=== PATIENT | male | born 1990 | race Caucasian/White ===

== ENCOUNTER 2022-10-31 13:58 | Inpatient (IN) | payer OTHER ==
[2022-10-31] MEDS ORDERED: SODIUM CHLORIDE 0.9% 1,000 ML IV ONE (14:14)
[2022-10-31] MEDS ORDERED: LORazepam 2 MG/ML INJ IV STA ×8 (14:14→18:40)
--- NOTE | 2022-10-31 14:17 | ED ---
General Adult HPI - General Chief complaint: Altered Mental Status Stated complaint: Altered Mental Status Time Seen by Provider: 10/31/22 14:02 Source: EMS Mode of arrival: EMS Limitations: altered mental status - History of Present Illness Initial comments: Patient brought to the ED by ambulance from [place] for evaluation of altered mental status. Per EMS, the staff reported to them that the patient has developed altered mental status today and reportedly defecated on himself. Patient is reportedly at [place] for opiate and benzodiazepine dependence treatment. On arrival to the ED, the patient is alert with eyes open, but not verbally responsive at all. Patient is moving all 4 extremities spontaneously. Patient has not answering any of my questions at this time. No other history is available at this time. - Related Data Home Medications Medication Instructions Recorded Confirmed Acetaminophen Tab [Tylenol] 650 mg PO Q4H PRN 10/31/22 10/31/22 Calcium/Magnesium/Zinc/Yasmeen D 1 tab PO DAILY PRN 10/31/22 Chlorpheniramine Maleate 4 mg PO Q4H PRN 10/31/22 10/31/22 [Chlor-Trimeton] Hyoscyamine Sulfate [Levsin] 0.125 mg PO QID PRN 10/31/22 10/31/22 Loperamide HCl [Imodium A-D] 4 mg PO BID PRN 10/31/22 10/31/22 Magnesium Hydroxide [Milk of 2,400 mg PO BID PRN 10/31/22 10/31/22 Magnesia] Mirtazapine [Remeron] 15 mg PO HS 10/31/22 10/31/22 Ondansetron [Zofran] 4 mg PO Q6H PRN 10/31/22 10/31/22 cloNIDine HCL [Catapres] 0.1 mg PO Q4H PRN 10/31/22 10/31/22 Allergies Allergy/AdvReac Type Severity Reaction Status Date / Time No Known Allergies Allergy Verified 10/31/22 14:34 Review of Systems ROS Statement: Those systems with pertinent positive or pertinent negative responses have been documented in the HPI. ROS Other: All systems not noted in ROS Statement are negative. Limitations: ROS unobtainable due to patients medical condition General Exam Limitations: altered mental status General appearance: alert Head exam: Present: atraumatic, normocephalic Eye exam: Present: normal appearance, PERRL ENT exam: Present: mucous membranes moist, TM's normal bilaterally Neck exam: Present: other (Trachea is in midline). Absent: meningismus Respiratory exam: Present: other (Course breath sounds bilaterally). Absent: respiratory distress, wheezes, stridor Cardiovascular Exam: Present: regular rate, normal rhythm, normal heart sounds, other (Normal radial pulses bilaterally) GI/Abdominal exam: Present: soft. Absent: distended, tenderness, guarding Extremities exam: Absent: pedal edema Neurological exam: Present: alert, other (Patient is moving all 4 extremities spontaneously; patient localizes to pain in all 4 extremities; pupils equal round and reactive to light) Skin exam: Present: warm, dry, intact, normal color Course Vital Signs 10/31/22 10/31/22 10/31/22 14:02 15:58 16:32 Temperature 99.3 F Pulse Rate 71 106 H 112 H Respiratory 18 22 Rate Blood Pressure 144/93 146/92 O2 Sat by Pulse 94 L 88 L Oximetry 10/31/22 16:36 Temperature Pulse Rate 101 H Respiratory Rate Blood Pressure O2 Sat by Pulse Oximetry - Reevaluation(s) Reevaluation #1: 10/31/22 17:04 Case, H&P, test results and ED management thus far were discussed with GEAR GENERATOR SET UP OPERATOR Joann Haddad. She accepts admission on behalf of herself and Dr. Boykin. She agrees with neurology and psychiatry consultations. She has no further recommendations at this time. 10/31/22 17:30 Patient's neurological exam is unchanged. She remains alert and breathing comfortably. EKG Findings - EKG Comments: EKG Findings:: ED physician interpretation (interpreted by me): Normal sinus rhythm, no ectopy, ventricular rate of 72 bpm, normal [place] and QRS intervals, normal QT interval, moderate voltage criteria for LVH, normal axis, no ST or T- wave abnormality Medical Decision Making - Medical Decision Making Was pt. sent in by a medical professional or institution (ESEQUIEL Lorenzo, GEAR GENERATOR SET UP OPERATOR, urgent care, hospital, or detention...) When possible be specific @ -No Did you speak to anyone other than the patient for history (EMS, parent, family, police, friend...)? What history was obtained from this source @ -History was obtained from EMS. Did you review nursing and triage notes (agree or disagree)? Why? @ -I reviewed and agree with nursing and triage notes Were old charts reviewed (outside hosp., previous admission, EMS record, old EKG, old radiological studies, urgent care reports/EKG's, detention records)? Report findings @ -No old charts were reviewed Differential Diagnosis (chest pain, altered mental status, abdominal pain women, abdominal pain men, vaginal bleeding, weakness, fever, dyspnea, syncope, headache, dizziness, GI bleed, back pain, seizure, CVA, palpatations, mental health, musculoskeletal)? @ -Differential Altered Mental Status: Hypoglycemia, DKA, hypercapnia, ETOH, overdose, HTN encephalopathy, infection, encephalitis, psychosis, intercranial hemorrhage, hepatic encephalopathy, me ningitis, CVA, medication reaction, psychiatric disease, this is not meant to be an all-inclusive liste EKG interpreted by me (3pts min.). @ -As above X-rays interpreted by me (1pt min.). @ -Patient's chest x-ray was reviewed myself and shows no acute abnormality. I agree with the radiologist's interpretation as above. CT interpreted by me (1pt min.). @ -Patient's noncontrast head CT was reviewed myself and shows no acute abnormality. I agree with the radiologist's interpretation as above. U/S interpreted by me (1pt. min.). @ -None done What testing was considered but not performed or refused? (CT, X-rays, U/S, labs)? Why? @ -None What meds were considered but not given or refused? Why? @ -None Did you discuss the management of the patient with other professionals (professionals i.e. , PA, GEAR GENERATOR SET UP OPERATOR, lab, RT, psych nurse, high school social studies tutor, conveyor tender concrete mixing plant, teacher, forward air controller/air officer, case picker)? Give summary @ -As above] Was smoking cessation discussed for >3mins.? @ -No Was critical care preformed (if so, how long)? @ -No Were there social determinants of health that impacted care today? How? (Homelessness, low income, unemployed, alcoholism, drug addiction, transportation, low edu. Level, literacy, decrease access to med. care, fci, rehab)? @ -Patient was sent to the ED from [place] for evaluation. Was there de-escalation of care discussed even if they declined (Discuss DNR or withdrawal of care, Hospice)? DNR status @ -No What co-morbidities impacted this encounter? (DM, HTN, Smoking, COPD, CAD, Cancer, CVA, ARF, Chemo, Hep., AIDS, mental health diagnosis, sleep apnea, morbid obesity)? @ -Drug abuse/dependence Was patient admitted / discharged? Hospital course, mention meds given and route, prescriptions, significant lab abnormalities, going to OR and other pertinent info. @ -Patient has been alert, but not responsive while in the ED. Patient is afebrile and has no nuchal rigidity on exam. Patient is not rigid and does not have myoclonus. Patient's head imaging is negative. Patient is mildly hypernatremic and appears somewhat dehydrated on laboratory evaluation, but has otherwise fairly unremarkable labs. I am uncertain of the exact etiology of the patient's altered mental status at this time, but I suspect it is likely toxicological versus psychiatric in etiology. Will admit the patient to the hospital for further evaluation and management. GEAR GENERATOR SET UP OPERATOR Anna Haddad has accepted hospital admission on behalf of herself and Dr. Boykin. Neurology and psychiatry consultation orders have been placed. Patient has been treated with IV Ativan and IV fluids in the ED. Undiagnosed new problem with uncertain prognosis? @ -No Drug Therapy requiring intensive monitoring for toxicity (Heparin, Nitro, Insulin, Cardizem)? @ -No Were any procedures done? @ -No Diagnosis/symptom? @ -Altered mental status Acute, or Chronic, or Acute on Chronic? @ -Acute Uncomplicated (without systemic symptoms) or Complicated (systemic symptoms)? @ -default Side effects of treatment? @ -No Exacerbation, Progression, or Severe Exacerbation? @ -No Poses a threat to life or bodily function? How? (Chest pain, USA, ID, pneumonia, PE, COPD, DKA, ARF, appy, cholecystitis, CVA, Diverticulitis, Homicidal, Suicidal, threat to staff... and all critical care pts) @ -No Diagnosis/symptom? @ -Hypernatremia Acute, or Chronic, or Acute on Chronic? @ -default Uncomplicated (without systemic symptoms) or Complicated (systemic symptoms)? @ -default Side effects of treatment? @ -none Exacerbation, Progression, or Severe Exacerbation] @ -no Poses a threat to life or bodily function? @ -no - Lab Data Result diagrams: 10/31/22 14:27 10/31/22 14:27 Lab Results 10/31/22 10/31/22 10/31/22 Range/Units 14:27 14:27 14:27 WBC 11.1 H (3.8-10.6) k/uL RBC 6.18 H (4.30-5.90) m/uL Hgb 16.3 (13.0-17.5) gm/dL Hct 49.0 (39.0-53.0) % MCV 79.3 L (80.0-100.0) fL MCH 26.3 (25.0-35.0) pg MCHC 33.2 (31.0-37.0) g/dL RDW 13.6 (11.5-15.5) % Plt Count 362 (150-450) k/uL MPV 7.5 Neutrophils % 82 % Lymphocytes % 11 % Monocytes % 5 % Eosinophils % 0 % Basophils % 0 % Neutrophils # 9.2 H (1.3-7.7) k/uL Lymphocytes # 1.3 (1.0-4.8) k/uL Monocytes # 0.5 (0-1.0) k/uL Eosinophils # 0.0 (0-0.7) k/uL Basophils # 0.0 (0-0.2) k/uL PT 12.7 H (9.0-12.0) sec INR 1.2 H (<1.2) APTT 23.0 (22.0-30.0) sec Sodium 152 H (137-145) mmol/L Potassium 3.9 (3.5-5.1) mmol/L Chloride 108 H (98-107) mmol/L Carbon Dioxide 25 (22-30) mmol/L Anion Gap 19 mmol/L BUN 38 H (9-20) mg/dL Creatinine 1.15 (0.66-1.25) mg/dL Est GFR (CKD-EPI)AfAm >90 (>60 ml/min/1.73 sqM) Est GFR (CKD-EPI)NonAf 83 (>60 ml/min/1.73 sqM) Glucose 137 H (74-99) mg/dL POC Glucose (mg/dL) (70-110) mg/dL POC Glu Rubbing Bed Operator ID Calcium 10.6 H (8.4-10.2) mg/dL Total Bilirubin 1.0 (0.2-1.3) mg/dL AST 29 (17-59) U/L ALT 27 (4-49) U/L Alkaline Phosphatase 87 (38-126) U/L Ammonia (<30) umol/L Creatine Kinase 222 H (55-170) U/L Troponin I (0.000-0.034) ng/mL Total Protein 10.3 H (6.3-8.2) g/dL Albumin 5.5 H (3.5-5.0) g/dL Serum Alcohol <10 mg/dL 10/31/22 10/31/22 10/31/22 Range/Units 14:27 14:27 14:36 WBC (3.8-10.6) k/uL RBC (4.30-5.90) m/uL Hgb (13.0-17.5) gm/dL Hct (39.0-53.0) % MCV (80.0-100.0) fL MCH (25.0-35.0) pg MCHC (31.0-37.0) g/dL RDW (11.5-15.5) % Plt Count (150-450) k/uL MPV Neutrophils % % Lymphocytes % % Monocytes % % Eosinophils % % Basophils % % Neutrophils # (1.3-7.7) k/uL Lymphocytes # (1.0-4.8) k/uL Monocytes # (0-1.0) k/uL Eosinophils # (0-0.7) k/uL Basophils # (0-0.2) k/uL PT (9.0-12.0) sec INR (<1.2) APTT (22.0-30.0) sec Sodium (137-145) mmol/L Potassium (3.5-5.1) mmol/L Chloride (98-107) mmol/L Carbon Dioxide (22-30) mmol/L Anion Gap mmol/L BUN (9-20) mg/dL Creatinine (0.66-1.25) mg/dL Est GFR (CKD-EPI)AfAm (>60 ml/min/1.73 sqM) Est GFR (CKD-EPI)NonAf (>60 ml/min/1.73 sqM) Glucose (74-99) mg/dL POC Glucose (mg/dL) 119 H (70-110) mg/dL POC Glu Rubbing Bed Operator ID Ricardo Gastelum Calcium (8.4-10.2) mg/dL Total Bilirubin (0.2-1.3) mg/dL AST (17-59) U/L ALT (4-49) U/L Alkaline Phosphatase (38-126) U/L Ammonia <9 (<30) umol/L Creatine Kinase (55-170) U/L Troponin I <0.012 (0.000-0.034) ng/mL Total Protein (6.3-8.2) g/dL Albumin (3.5-5.0) g/dL Serum Alcohol mg/dL - Radiology Data Chest x-ray: No acute process. Noncontrast head CT: No acute intracranial hemorrhage, mass effect, or midline shift is seen. Disposition Clinical Impression: Altered mental status, Hypernatremia Disposition: ADMITTED IP TO THIS HOSP Condition: Stable Is patient prescribed a controlled substance at d/c from ED?: No Referrals: None,Stated [Primary Care Provider] - 1-2 days Time of Disposition: 17:28
[2022-10-31 14:38] LABS: Glucose,Whole Blood 119 mg/dL (70-110)
[2022-10-31 14:46] LABS: Basophils % (A) 0 %; Eosinophils % (A) 0 %; HGB 16.3 gm/dL (13.0-17.5); Lymphocytes # (A) 1.3 k/uL (1.0-4.8); Lymphocytes % (A) 11 %; MCH 26.3 pg (25.0-35.0); MCHC 33.2 g/dL (31.0-37.0); MCV 79.3 fL (80.0-100.0); Mean Platelet Volume 7.5; Monocytes # (A) 0.5 k/uL (0-1.0); Monocytes % (A) 5 %; Neutrophils # (A) 9.2 k/uL (1.3-7.7); Neutrophils % (A) 82 %; Platelet Count 362 k/uL (150-450); RBC 6.18 m/uL (4.30-5.90); RDW 13.6 % (11.5-15.5); WBC 11.1 k/uL (3.8-10.6)
[2022-10-31 14:55] LABS: ALT 27 U/L (4-49); AST 29 U/L (17-59); African American GFR (CKD) >90 (>60 ml/min/1.73 sqM); Albumin 5.5 g/dL (3.5-5.0); Alcohol <10 mg/dL; Alkaline Phosphatase 87 U/L (38-126); Anion Gap 19 mmol/L; Blood Urea Nitrogen 38 mg/dL (9-20); Calcium 10.6 mg/dL (8.4-10.2); Carbon Dioxide 25 mmol/L (22-30); Chloride 108 mmol/L (98-107); Creatine Kinase 222 U/L (55-170); Glucose 137 mg/dL (74-99); Non-African American GFR(CKD) 83 (>60 ml/min/1.73 sqM); Potassium 3.9 mmol/L (3.5-5.1); Sodium 152 mmol/L (137-145); Total Protein 10.3 g/dL (6.3-8.2)
[2022-10-31 14:57] LABS: INR 1.2 (<1.2); Prothrombin Time 12.7 sec (9.0-12.0)
--- NOTE | 2022-10-31 15:12 | XR ---
EXAMINATION TYPE: XR chest 1V portable DATE OF EXAM: 10/31/2022 COMPARISON: NONE HISTORY: Altered mental status and weakness. TECHNIQUE: Single AP portable frontal upright view of the chest is obtained. FINDINGS: There is no focal air space opacity, pleural effusion, or pneumothorax seen. The cardiac silhouette size is within normal limits. The osseous structures are intact. IMPRESSION: No acute process.
--- NOTE | 2022-10-31 15:35 | CT ---
EXAMINATION TYPE: CT brain wo con DATE OF EXAM: 10/31/2022 COMPARISON: None. HISTORY: ams CT DLP: 1143.4 mGycm. Automated Exposure Control for Dose Reduction was Utilized. TECHNIQUE: CT scan of the head is performed without contrast. FINDINGS: There is no acute intracranial hemorrhage, mass effect, or midline shift identified. The ventricles and sulci are within normal limits in size. Chairez-white matter differentiation is maintain ed. Nasal septum is deviated to right of midline. The globes are intact and the visualized sinuses ar e clear. IMPRESSION: No acute intracranial hemorrhage, mass effect, or midline shift is seen.
[2022-10-31] MEDS ORDERED: IPRATROPIUM-ALBUTEROL 3 ML NEB INHALATION STA ×2 (16:14→18:03)
[2022-10-31] MEDS ORDERED: SODIUM CHLORIDE 0.9% 500 ML 500 ML IV ONE (16:21)
[2022-10-31] MEDS ORDERED: NALOXONE 0.4 MG/ML 1 ML VIAL IV PRN (17:28)
[2022-10-31] MEDS ORDERED: ZIPRASIDONE 20 MG VIAL IM STA (18:46)
[2022-10-31] MEDS: DEXMEDETOMIDINE/0.9% NACL(PMX) 400 MCG in EMPTY BAG 1 BAG IV SCH (19:18)
[2022-10-31] MEDS: SODIUM CHLORIDE 0.9% 1,000 ML IV SCH (19:25)
[2022-10-31 20:40] LABS: Glucose,Whole Blood 120 mg/dL (70-110)
[2022-10-31 22:23] LABS: Appearance,Urine Clear (Clear); Bilirubin,Urine Negative (Negative); Blood,Urine Negative (Negative); Color,Urine Yellow; Glucose,Urine (UA) Negative (Negative); Ketones,Urine Trace (Negative); Leukocyte Esterase,Urine Negative (Negative); Nitrite,Urine Negative (Negative); PH, Urine 5.5 (5.0-8.0); Protein,Urine Trace (Negative); Specific Gravity,Urine 1.019 (1.001-1.035); Urobilinogen,Urine <2.0 mg/dL (<2.0)
[2022-10-31 22:29] LABS: Amphetamine Screen,Urine Not Detected (NotDetected); Barbiturate Screen,Urine Not Detected (NotDetected); Benzodiazepines Screen,Urine Detected (NotDetected); Cocaine Screen,Urine Not Detected (NotDetected); Methadone Screen, Urine Not Detected (NotDetected); Opiate Screen,Urine Not Detected (NotDetected); Oxycodone Screen, Urine Not Detected (NotDetected); Phencyclidine Screen,Urine Not Detected (NotDetected); Tricyclic Antidepressant,Urine Not Detected (NotDetected); Urn Cannabinoid Scrn Not Detected (NotDetected)
[2022-11-01] MEDS ORDERED: HALOPERIDOL LACTATE 5 MG/ML 1 ML VIAL IVP PRN ×2 (01:37→08:56)
--- NOTE | 2022-11-01 01:39 | P.CNPUL ---
History of Present Illness Consult date: 11/01/22 Requesting physician: Kwadwo Oakley Reason for consult: other (ICU management) Chief complaint: Altered mental status, agitation History of present illness: I'm seeing this patient in new consultation today 11/01/2022 in the intensive care unit for suspected opiate and benzodiazepine withdrawal. Patient is a 32-year-old white male, with past medical history significant for polysubstance abuse, who was being seen at [facility]. Patient was reportedly there for over 1 week, when he started to develop worsening altered mental status and agitation, and was transferred to [facility]. While in the emergency department, the patient became more restless and agitated. He was treated with multiple doses of IV Ativan and IM Geodon without improvement. The patient was started on IV Precedex drip, and admitted to the intensive care unit. Patient is currently lying in bed, on room air, and is fairly comfortable. He is having some auditory and visual hallucinations. Precedex is infusing at 0.7 mcg/kg per hour. He is disoriented and a poor historian. There is a patient safety attendant at bedside. Brain CT without contrast on arrival was negative for any acute abnormalities. Chest x-ray showed no acute cardiopulmonary abnormalities. CBC on arrival showed a WBC count 11, hemoglobin 16, hematocrit 49, platelets 362. BMP shows a sodium of 152, potassium 3.9, chloride 108, serum CO2 25, BUN 38, creatinine 1.15, glucose 137. He clinically appears dehydrated, and has normal saline infusing at 130 ML's per hour. He also was given 2 L normal saline bolus in the emergency room. Estimated free water deficit was 3.5 L. Urine tox screen was only positive for benzos, which were given in the emergency room. Vital signs are stable at this time. Review of Systems ROS unobtainable: due to mental status Past Medical History Past Medical History: No Reported History History of Any Multi-Drug Resistant Organisms: None Reported Past Surgical History: No Surgical Hx Reported Past Anesthesia/Blood Transfusion Reactions: No Reported Reaction Past Psychological History: No Psychological Hx Reported Smoking Status: Former smoker Past Alcohol Use History: Unable to Obtain Past Drug Use History: Opiates Additional Drug Use History / Comment(s): Pt has history of fentanyl and benzo abuse Medications and Allergies Home Medications Medication Instructions Recorded Confirmed Type Acetaminophen Tab [Tylenol] 650 mg PO Q4H PRN 10/31/22 10/31/22 History Calcium/Magnesium/Zinc/Yasmeen D 1 tab PO DAILY PRN 10/31/22 History Chlorpheniramine Maleate 4 mg PO Q4H PRN 10/31/22 10/31/22 History [Chlor-Trimeton] Hyoscyamine Sulfate [Levsin] 0.125 mg PO QID PRN 10/31/22 10/31/22 History Loperamide HCl [Imodium A-D] 4 mg PO BID PRN 10/31/22 10/31/22 History Magnesium Hydroxide [Milk of 2,400 mg PO BID PRN 10/31/22 10/31/22 History Magnesia] Mirtazapine [Remeron] 15 mg PO HS 10/31/22 10/31/22 History Ondansetron [Zofran] 4 mg PO Q6H PRN 10/31/22 10/31/22 History cloNIDine HCL [Catapres] 0.1 mg PO Q4H PRN 10/31/22 10/31/22 History Allergies Allergy/AdvReac Type Severity Reaction Status Date / Time No Known Allergies Allergy Verified 10/31/22 14:34 Physical Exam Vitals: Vital Signs Temp Pulse Resp BP Pulse Ox 10/31/22 22:40 11 L 122/87 90 L 10/31/22 22:30 98 17 123/84 95 10/31/22 22:20 91 18 123/84 96 10/31/22 22:10 89 17 129/85 94 L 10/31/22 22:00 68 16 136/90 96 10/31/22 21:50 110 H 16 136/90 91 L 10/31/22 21:40 105 H 19 133/71 90 L 10/31/22 21:30 105 H 4 L 126/97 91 L 10/31/22 21:20 93 15 126/97 90 L 10/31/22 21:10 105 H 12 139/81 95 10/31/22 21:00 97.4 F L 96 16 134/99 94 L 10/31/22 20:50 118 H 15 134/99 98 10/31/22 20:42 110 H 14 131/89 10/31/22 20:30 119/71 10/31/22 20:20 110 H 20 119/71 95 10/31/22 19:44 125 H 22 134/91 99 10/31/22 18:21 126 H 10/31/22 18:08 105 H 10/31/22 16:36 101 H 10/31/22 16:32 112 H 10/31/22 15:58 106 H 22 146/92 88 L 10/31/22 14:02 99.3 F 71 18 144/93 94 L Intake and Output 10/31/22 10/31/22 11/01/22 14:59 22:59 06:59 Intake Total 421.072 Output Total 1300 Balance -878.928 Intake: IV 390 Sodium Chloride 0.9% 1, 390 000 ml @ 130 mls/hr IV . Q7H42M JOHAN Rx#:[id number] Intake, IV Titration 31.072 Amount Dexmedetomidine/0.9% NaCl 31.072 (Pmx) 400 mcg In Empty Bag 1 bag @ 0.2 MCG/KG/HR 4.536 mls/hr IV .Q22H3M JOHAN Rx#:[id number] Output: Urine 1300 Other: Weight 90.718 kg 91 kg GENERAL EXAM: Drowsy, 32-year-old white male, fairly comfortable. HEAD: Normocephalic and atraumatic EYES: Normal reaction of pupils, equal size. NOSE: Clear with pink turbinates. THROAT: No erythema or exudates. NECK: No masses, no JVD. CHEST: No chest wall deformity. LUNGS: Equal air entry with no crackles, wheeze, rhonchi or dullness. On room air. No conversational dyspnea or accessory muscle use.. CVS: S1 and S2 normal with no audible murmur, regular rhythm. No extra heart sounds ABDOMEN: No hepatosplenomegaly, active bowel sounds, no guarding or rigidity. SPINE: No scoliosis or deformity SKIN: No rashes CENTRAL NERVOUS SYSTEM: No focal deficits, tone is normal in all 4 extremities. He is disoriented 3. EXTREMITIES: There is no peripheral edema, clubbing, or cyanosis. Peripheral pulses are intact. Results - Laboratory Findings CBC and BMP: 10/31/22 14:27 10/31/22 14:27 PT/INR, D-dimer PT 12.7 sec (9.0-12.0) H 10/31/22 14:27 INR 1.2 (<1.2) H 10/31/22 14:27 Abnormal lab findings: Abnormal Labs 10/31/22 10/31/22 10/31/22 14:14 14:27 14:27 WBC 11.1 H RBC 6.18 H MCV 79.3 L Neutrophils # 9.2 H PT 12.7 H INR 1.2 H Sodium Chloride BUN Glucose POC Glucose (mg/dL) Calcium Creatine Kinase Total Protein Albumin Urine Protein Trace H Urine Ketones Trace H U Benzodiazepines Scrn Detected H 10/31/22 10/31/22 10/31/22 14:27 14:36 20:37 WBC RBC MCV Neutrophils # PT INR Sodium 152 H Chloride 108 H BUN 38 H Glucose 137 H POC Glucose (mg/dL) 119 H 120 H Calcium 10.6 H Creatine Kinase 222 H Total Protein 10.3 H Albumin 5.5 H Urine Protein Urine Ketones U Benzodiazepines Scrn - Diagnostic Findings Chest x-ray: image reviewed Assessment and Plan Assessment: Altered mental status related to suspected acute opiate and benzodiazepine wi thdrawals requiring Precedex infusion. Brain CT was negative for any acute abnormalities. Hypernatremia Dehydration Ex-smoker Plan: Patient's medications, labs, chest x-ray reviewed Continue Precedex infusion, with intention of weaning off the Precedex within the next 24 hours scow derrick operator at bedside Patient was fluid resuscitated Repeat labs in the morning Heparin for DVT prophylaxis Protonix for GI prophylaxis Vital signs are stable at this time Patient will be monitored in the intensive care unit at least overnight I have personally seen and examined the patient, performed the documentation and the assessment and plan as written. Number of minutes spent on the visit:20 Time with Patient: Greater than 30
[2022-11-01 04:05] LABS: Basophils % (A) 0 %; Eosinophils # (A) 0.1 k/uL (0-0.7); Eosinophils % (A) 1 %; HCT 42.4 % (39.0-53.0); HGB 13.7 gm/dL (13.0-17.5); Lymphocytes # (A) 1.1 k/uL (1.0-4.8); Lymphocytes % (A) 8 %; MCH 26.6 pg (25.0-35.0); MCHC 32.4 g/dL (31.0-37.0); MCV 82.2 fL (80.0-100.0); Mean Platelet Volume 7.4; Monocytes # (A) 0.7 k/uL (0-1.0); Monocytes % (A) 5 %; Neutrophils # (A) 12.3 k/uL (1.3-7.7); Neutrophils % (A) 86 %; Platelet Count 258 k/uL (150-450); RBC 5.16 m/uL (4.30-5.90); RDW 13.6 % (11.5-15.5); WBC 14.3 k/uL (3.8-10.6)
[2022-11-01 04:43] LABS: African American GFR (CKD) >90 (>60 ml/min/1.73 sqM); Anion Gap 9 mmol/L; Blood Urea Nitrogen 28 mg/dL (9-20); Calcium 9.2 mg/dL (8.4-10.2); Carbon Dioxide 24 mmol/L (22-30); Chloride 118 mmol/L (98-107); Glucose 134 mg/dL (74-99); Magnesium 2.5 mg/dL (1.6-2.3); Non-African American GFR(CKD) >90 (>60 ml/min/1.73 sqM); Potassium 3.4 mmol/L (3.5-5.1); Sodium 151 mmol/L (137-145)
[2022-11-01] MEDS: SODIUM CHLORIDE 0.45% 1,000 ML IV SCH ×2 (06:22→20:45)
[2022-11-01] MEDS: POTASSIUM CHLORIDE 10 MEQ in WATER FOR INJECTION 1 100ML.BAG IVPB SCH ×4 (06:22→12:02)
[2022-11-01] MEDS: SODIUM CHLORIDE 0.9% 1,000 ML IV SCH (06:23)
[2022-11-01] MEDS: DEXMEDETOMIDINE/0.9% NACL(PMX) 400 MCG in EMPTY BAG 1 BAG IV SCH (07:57)
[2022-11-01] MEDS: PANTOPRAZOLE 40 MG/10 ML VIAL IV SCH (08:39)
[2022-11-01] MEDS: HEPARIN SODIUM,PORCINE/PF 5,000 UNIT/0.5 ML SYRINGE SQ SCH ×2 (08:39→20:45)
[2022-11-01] MEDS ORDERED: QUEtiapine 25 MG TAB PO SCH (09:00)
[2022-11-01] MEDS: LORazepam 2 MG/ML INJ IV PRN ×5 (10:55→23:47)
--- NOTE | 2022-11-01 12:38 | P.CNNES ---
History of Present Illness Consult date: 11/01/22 Requesting physician: Kwadwo Oakley Reason for Consult: altered mental status History of Present Illness: This is a 32-year-old gentleman with history of polysubstance abuse who was sent from [place] because of the worsening altered mental status and agitation. He did acknowledge that he uses a opiates and benzos and that's why he was at [place]. He states that he drinks minimal alcohol. History is obtained from medical record that. He does lisa. At [facility] seems that the patient was a given multiple doses of IV Ativan and IM Geodon without improvement. Patient denies of any headache, focal weakness, numbness,, visual disturbance. Some of the workup during his hospital visit consisted of: Patient has been afebrile so far. Sodium is 152, glucose is 137 on presentation and most current ones is 134. CK levels 222. Most recent calcium is 9.2. Magnesium is 2.5. AST and ALT is within normal limits. Urine tox screen is positive for benzo. Serum alcohol was less than 10. Otherwise the rest of the urine drug screen is nondetected. Ammonia level is less than 9. CT of the head is reported as no acute intracranial hemorrhage, mass effect or midline shift is seen. I personally reviewed the CT and agree with report. Review of Systems Review of system is limited but the per positive and negative as per HPI. Past Medical History Past Medical History: No Reported History History of Any Multi-Drug Resistant Organisms: None Reported Past Surgical History: No Surgical Hx Reported Past Anesthesia/Blood Transfusion Reactions: No Reported Reaction Past Psychological History: No Psychological Hx Reported Smoking Status: Former smoker Past Alcohol Use History: Unable to Obtain Past Drug Use History: Opiates Additional Drug Use History / Comment(s): Pt has history of fentanyl and benzo abuse Medications and Allergies Home Medications Medication Instructions Recorded Confirmed Type Acetaminophen Tab [Tylenol] 650 mg PO Q4H PRN 10/31/22 10/31/22 History Calcium/Magnesium/Zinc/Yasmeen D 1 tab PO DAILY PRN 10/31/22 History Chlorpheniramine Maleate 4 mg PO Q4H PRN 10/31/22 10/31/22 History [Chlor-Trimeton] Hyoscyamine Sulfate [Levsin] 0.125 mg PO QID PRN 10/31/22 10/31/22 History Loperamide HCl [Imodium A-D] 4 mg PO BID PRN 10/31/22 10/31/22 History Magnesium Hydroxide [Milk of 2,400 mg PO BID PRN 10/31/22 10/31/22 History Magnesia] Mirtazapine [Remeron] 15 mg PO HS 10/31/22 10/31/22 History Ondansetron [Zofran] 4 mg PO Q6H PRN 10/31/22 10/31/22 History cloNIDine HCL [Catapres] 0.1 mg PO Q4H PRN 10/31/22 10/31/22 History Allergies Allergy/AdvReac Type Severity Reaction Status Date / Time No Known Allergies Allergy Verified 10/31/22 14:34 Physical Examination - Vital Signs Vital Signs: Vital Signs Temp Pulse Resp BP Pulse Ox 11/01/22 12:00 98.0 F 72 22 133/86 94 L 11/01/22 11:00 58 L 22 145/98 99 11/01/22 10:00 71 20 133/93 99 11/01/22 09:00 61 22 129/85 97 11/01/22 08:07 99 11/01/22 08:00 98.0 F 68 16 123/80 98 11/01/22 07:00 74 15 116/70 98 11/01/22 06:30 70 17 94/71 90 L 11/01/22 06:00 64 15 128/86 95 11/01/22 05:30 78 18 127/89 98 11/01/22 05:00 66 14 135/92 100 11/01/22 04:30 118 H 13 128/88 91 L 11/01/22 04:00 98.2 F 113 H 15 114/88 94 L 11/01/22 03:30 14 125/87 91 L 11/01/22 03:00 76 20 126/81 97 11/01/22 02:30 93 12 126/85 92 L 11/01/22 02:00 78 15 122/82 90 L 11/01/22 01:30 88 14 117/76 98 11/01/22 01:00 86 13 96 11/01/22 00:30 85 14 126/88 92 L 11/01/22 00:00 98.4 F 86 15 114/83 95 10/31/22 23:30 91 14 113/95 83 L 10/31/22 23:00 96 19 117/91 94 L 10/31/22 22:48 101 H 16 117/91 93 L 10/31/22 22:40 11 L 122/87 90 L 10/31/22 22:30 98 17 123/84 95 10/31/22 22:20 91 18 123/84 96 10/31/22 22:10 89 17 129/85 94 L 10/31/22 22:00 68 16 136/90 96 10/31/22 21:50 110 H 16 136/90 91 L 10/31/22 21:40 105 H 19 133/71 90 L 10/31/22 21:30 105 H 4 L 126/97 91 L 10/31/22 21:20 93 15 126/97 90 L 10/31/22 21:10 105 H 12 139/81 95 10/31/22 21:00 97.4 F L 96 16 134/99 94 L 10/31/22 20:50 118 H 15 134/99 98 10/31/22 20:42 110 H 14 131/89 10/31/22 20:30 119/71 10/31/22 20:20 110 H 20 119/71 95 10/31/22 19:44 125 H 22 134/91 99 10/31/22 18:21 126 H 10/31/22 18:08 105 H 10/31/22 16:36 101 H 10/31/22 16:32 112 H 10/31/22 15:58 106 H 22 146/92 88 L 10/31/22 14:02 99.3 F 71 18 144/93 94 L Intake and Output 10/31/22 11/01/22 11/01/22 22:59 06:59 14:59 Intake Total 180.256 7139.928 692.546 Output Total 1300 570 675 Balance -878.928 538.928 17.546 Intake: IV 390 1040 660 Sodium Chloride 0.45% 1, 400 000 ml @ 100 mls/hr IV . Q10H JOHAN Rx#:[id number] Sodium Chloride 0.9% 1, 390 1040 260 000 ml @ 130 mls/hr IV . Q7H42M JOHAN Rx#:[id number] Intake, IV Titration 31.072 68.928 32.546 Amount Dexmedetomidine/0.9% NaCl 31.072 68.928 32.546 (Pmx) 400 mcg In Empty Bag 1 bag @ 0.2 MCG/KG/HR 4.536 mls/hr IV .Q22H3M [facility] Rx#:[id number] Output: Urine 1300 570 675 Other: Voiding Method Indwelling Catheter Indwelling Catheter Weight 91 kg 102.5 kg GENERAL: The patient is lying in bed and is not in acute distress. CHEST: The heart rate is regular rate rhythm. No murmurs to auscultation. LUNG: Clear to auscultation bilaterally no wheezing noted throughout. Not labored breathing. ABDOMEN/GI: Bowel sounds present in all 4 quadrants. No tenderness to palpation throughout. NEUROLOGICAL: Is on IV Precedex 0.4mg/kg/hr. Higher mental function: The patient is drowsy but is awakeable to voice. Is oriented to self and time. He kept o stating he was at [facility]. He is able to name pen and watch. He was able to name current state and [facility]. Sometime he talks nonsensical. Patient is following simple commands. No neglect. Cranial nerves: The pupils are round, equal and reactive to light. Visual cabrera are full to confrontation throughout. Extraocular movement is intact no nystagmus is noted. Facial sensation is normal to touch throughout. The facial strength is normal throughout. Hearing is normal bilaterally to hand rub. Ton monserrat is midline and moved [id number] without any difficulty. No dysarthria is noted. Shoulder shrug is normal bilaterally. Motor: The strength is 5 over 5 throughout. Normal tone and bulk. Cerebellum: Normal finger to nose bilaterally. Sensation: Sensation is normal to touch throughout. Reflexes (right/left):2+ Plantars are downgoing bilaterally. Results - Laboratory Findings CBC and BMP: 11/01/22 03:40 11/01/22 03:40 Abnormal Lab Findings: Abnormal Labs 10/31/22 10/31/22 10/31/22 14:14 14:27 14:27 WBC 11.1 H RBC 6.18 H MCV 79.3 L Neutrophils # 9.2 H PT 12.7 H INR 1.2 H Sodium Potassium Chloride BUN Glucose POC Glucose (mg/dL) Calcium Magnesium Creatine Kinase Total Protein Albumin Urine Protein Trace H Urine Ketones Trace H U Benzodiazepines Scrn Detected H 10/31/22 10/31/22 10/31/22 14:27 14:36 20:37 WBC RBC MCV Neutrophils # PT INR Sodium 152 H Potassium Chloride 108 H BUN 38 H Glucose 137 H POC Glucose (mg/dL) 119 H 120 H Calcium 10.6 H Magnesium Creatine Kinase 222 H Total Protein 10.3 H Albumin 5.5 H Urine Protein Urine Ketones U Benzodiazepines Scrn 11/01/22 11/01/22 03:40 03:40 WBC 14.3 H RBC MCV Neutrophils # 12.3 H PT INR Sodium 151 H Potassium 3.4 L Chloride 118 H BUN 28 H Glucose 134 H POC Glucose (mg/dL) Calcium Magnesium 2.5 H Creatine Kinase Total Protein Albumin Urine Protein Urine Ketones U Benzodiazepines Scrn Assessment and Plan Assessment: Altered mental status seems due to multifactorial: Predominantly opiate and benzo dyes the pain withdrawal as well as metabolic encephalopathy. Also is on IV sedation (Precedex). CT head is negative. No focal deficit on examination. Hypernatremia Dehydration Vapes Plan: I ordered a routine EEG. Ordered vitamin B12, folate, TSH. Placed the patient on thiamine 100 mg daily. Patient is currently on the Seroquel 25 mg 1 tablet 3 times a day started by the ICU team Waist the patient on nicotine patch. The patient was counseled on tobacco cessation. Psychiatry is consulted. We'll defer the rest of the medical management to primary and ICU team Thank you for the consultation. Time with Patient: Greater than 30
[2022-11-01] MEDS: NICOTINE 21MG/24HR PATCH TRANSDERM SCH (13:23)
[2022-11-01] MEDS: THIAMINE 100 MG in SODIUM CHLORIDE 0.9% 50 ML IVPB SCH (13:23)
--- NOTE | 2022-11-01 13:43 | P.HPIM ---
History of Present Illness H&P Date: 11/01/22 History of present illness; Patient is a 32-year-old gentleman with past medical history significant for polysubstance abuse was sent to the ER from [place] where he was being treated for polysubstance abuse. Patient was reportedly there for over 1 week, when he started to develop worsening altered mental status and agitation, and was transferred to [facility]. Initial lab work done in the ER showed WBC 11.1, hemoglobin 6.3, sodium 152, potassium 3.9, chloride 108, BUN 38, creatinine 1.15 Urine tox screen is positive for benzo. Serum alcohol was less than 10. Otherwise the rest of the urine drug screen is nondetected. Ammonia level is less than 9. CT of the head is reported as no acute intracranial hemorrhage, mass effect or midline shift is seen. While in the emergency department, the patient became more restless and agitated. He was treated with multiple doses of IV Ativan and IM Geodon without improvement. The patient was started on IV Precedex drip, and admitted to the intensive care unit REVIEW OF SYSTEMS: Review of systems cannot be obtained as patient is lethargic, unable to obtain a detailed review of systems PHYSICAL EXAMINATION: GENERAL: The patient is lethargic, not in any acute distress. Well developed, well nourished. HEENT: Pupils are round and equally reacting to light. EOMI. No scleral icterus. No conjunctival pallor. Normocephalic, atraumatic. No pharyngeal erythema. No thyromegaly. CARDIOVASCULAR: S1 and S2 present. Tachycardic PULMONARY: Chest is clear to auscultation, no wheezing or crackles. ABDOMEN: Soft, nontender, nondistended, normoactive bowel sounds. No palpable organomegaly. MUSCULOSKELETAL: No joint swelling or deformity. EXTREMITIES: No cyanosis, clubbing, or pedal edema. NEUROLOGICAL: Gross neurological examination did not reveal any focal deficits. SKIN: No rashes. Assessment and plan Acute metabolic encephalopathy suspected acute opiate and benzodiazepine withdrawals Hypernatremia Dehydration Ex-smoker Monitor vital signs Monitor CBC Monitor CMP Sitter at bedside Continue Precedex drip Continue IV fluids Continue antiemetics Resume home meds Consult psychiatry Critical care following DVT prophylaxis: Past Medical History Past Medical History: No Reported History History of Any Multi-Drug Resistant Organisms: None Reported Past Surgical History: No Surgical Hx Reported Past Anesthesia/Blood Transfusion Reactions: No Reported Reaction Past Psychological History: No Psychological Hx Reported Smoking Status: Former smoker Past Alcohol Use History: Unable to Obtain Past Drug Use History: Opiates Additional Drug Use History / Comment(s): Pt has history of fentanyl and benzo abuse Medications and Allergies Home Medications Medication Instructions Recorded Confirmed Type Acetaminophen Tab [Tylenol] 650 mg PO Q4H PRN 10/31/22 10/31/22 History Calcium/Magnesium/Zinc/Yasmeen D 1 tab PO DAILY PRN 10/31/22 History Chlorpheniramine Maleate 4 mg PO Q4H PRN 10/31/22 10/31/22 History [Chlor-Trimeton] Hyoscyamine Sulfate [Levsin] 0.125 mg PO QID PRN 10/31/22 10/31/22 History Loperamide HCl [Imodium A-D] 4 mg PO BID PRN 10/31/22 10/31/22 History Magnesium Hydroxide [Milk of 2,400 mg PO BID PRN 10/31/22 10/31/22 History Magnesia] Mirtazapine [Remeron] 15 mg PO HS 10/31/22 10/31/22 History Ondansetron [Zofran] 4 mg PO Q6H PRN 10/31/22 10/31/22 History cloNIDine HCL [Catapres] 0.1 mg PO Q4H PRN 10/31/22 10/31/22 History Allergies Allergy/AdvReac Type Severity Reaction Status Date / Time No Known Allergies Allergy Verified 10/31/22 14:34 Physical Exam Vitals: Vital Signs Temp Pulse Resp BP Pulse Ox 11/01/22 13:00 53 L 12 116/88 98 11/01/22 12:00 98.0 F 72 22 133/86 94 L 11/01/22 11:00 58 L 22 145/98 99 11/01/22 10:00 71 20 133/93 99 11/01/22 09:00 61 22 129/85 97 11/01/22 08:07 99 11/01/22 08:00 98.0 F 68 16 123/80 98 11/01/22 07:00 74 15 116/70 98 11/01/22 06:30 70 17 94/71 90 L 11/01/22 06:00 64 15 128/86 95 11/01/22 05:30 78 18 127/89 98 11/01/22 05:00 66 14 135/92 100 11/01/22 04:30 118 H 13 128/88 91 L 11/01/22 04:00 98.2 F 113 H 15 114/88 94 L 11/01/22 03:30 14 125/87 91 L 11/01/22 03:00 76 20 126/81 97 11/01/22 02:30 93 12 126/85 92 L 11/01/22 02:00 78 15 122/82 90 L 11/01/22 01:30 88 14 117/76 98 11/01/22 01:00 86 13 96 11/01/22 00:30 85 14 126/88 92 L 11/01/22 00:00 98.4 F 86 15 114/83 95 10/31/22 23:30 91 14 113/95 83 L 10/31/22 23:00 96 19 117/91 94 L 10/31/22 22:48 101 H 16 117/91 93 L 10/31/22 22:40 11 L 122/87 90 L 10/31/22 22:30 98 17 123/84 95 10/31/22 22:20 91 18 123/84 96 10/31/22 22:10 89 17 129/85 94 L 10/31/22 22:00 68 16 136/90 96 10/31/22 21:50 110 H 16 136/90 91 L 10/31/22 21:40 105 H 19 133/71 90 L 10/31/22 21:30 105 H 4 L 126/97 91 L 10/31/22 21:20 93 15 126/97 90 L 10/31/22 21:10 105 H 12 139/81 95 10/31/22 21:00 97.4 F L 96 16 134/99 94 L 10/31/22 20:50 118 H 15 134/99 98 10/31/22 20:42 110 H 14 131/89 10/31/22 20:30 119/71 10/31/22 20:20 110 H 20 119/71 95 10/31/22 19:44 125 H 22 134/91 99 10/31/22 18:21 126 H 10/31/22 18:08 105 H 10/31/22 16:36 101 H 10/31/22 16:32 112 H 10/31/22 15:58 106 H 22 146/92 88 L 10/31/22 14:02 99.3 F 71 18 144/93 94 L Intake and Output 10/31/22 11/01/22 11/01/22 22:59 06:59 14:59 Intake Total 965.514 5167.928 825.621 Output Total 1300 570 675 Balance -878.928 538.928 150.621 Intake: IV 390 1040 760 Sodium Chloride 0.45% 1, 500 000 ml @ 100 mls/hr IV . Q10H [facility]OH[facility] Rx#:[id number] Sodium Chloride 0.9% 1, 390 1040 260 000 ml @ 130 mls/hr IV . Q7H42M [facility] Rx#:[id number] Intake, IV Titration 31.072 68.928 65.621 Amount Dexmedetomidine/0.9% NaCl 31.072 68.928 65.621 (Pmx) 400 mcg In Empty Bag 1 bag @ 0.2 MCG/KG/HR 4.536 mls/hr IV .Q22H3M [facility] Rx#:[id number] Output: Urine 1300 570 675 Other: Voiding Method Indwelling Catheter Indwelling Catheter # Bowel Movements 1 Weight 91 kg 102.5 kg Results CBC & Chem 7: 11/01/22 03:40 11/01/22 03:40 Labs: Abnormal Lab Results - Last 24 Hours (Table) 10/31/22 10/31/22 10/31/22 Range/Units 14:14 14:27 14:27 WBC 11.1 H (3.8-10.6) k/uL RBC 6.18 H (4.30-5.90) m/uL MCV 79.3 L (80.0-100.0) fL Neutrophils # 9.2 H (1.3-7.7) k/uL PT 12.7 H (9.0-12.0) sec INR 1.2 H (<1.2) Sodium (137-145) mmol/L Potassium (3.5-5.1) mmol/L Chloride (98-107) mmol/L BUN (9-20) mg/dL Glucose (74-99) mg/dL POC Glucose (mg/dL) (70-110) mg/dL Calcium (8.4-10.2) mg/dL Magnesium (1.6-2.3) mg/dL Creatine Kinase (55-170) U/L Total Protein (6.3-8.2) g/dL Albumin (3.5-5.0) g/dL Urine Protein Trace H (Negative) Urine Ketones Trace H (Negative) U Benzodiazepines Scrn Detected H (NotDetected) 10/31/22 10/31/22 10/31/22 Range/Units 14:27 14:36 20:37 WBC (3.8-10.6) k/uL RBC (4.30-5.90) m/uL MCV (80.0-100.0) fL Neutrophils # (1.3-7.7) k/uL PT (9.0-12.0) sec INR (<1.2) Sodium 152 H (137-145) mmol/L Potassium (3.5-5.1) mmol/L Chloride 108 H (98-107) mmol/L BUN 38 H (9-20) mg/dL Glucose 137 H (74-99) mg/dL POC Glucose (mg/dL) 119 H 120 H (70-110) mg/dL Calcium 10.6 H (8.4-10.2) mg/dL Magnesium (1.6-2.3) mg/dL Creatine Kinase 222 H (55-170) U/L Total Protein 10.3 H (6.3-8.2) g/dL Albumin 5.5 H (3.5-5.0) g/dL Urine Protein (Negative) Urine Ketones (Negative) U Benzodiazepines Scrn (NotDetected) 11/01/22 11/01/22 Range/Units 03:40 03:40 WBC 14.3 H (3.8-10.6) k/uL RBC (4.30-5.90) m/uL MCV (80.0-100.0) fL Neutrophils # 12.3 H (1.3-7.7) k/uL PT (9.0-12.0) sec INR (<1.2) Sodium 151 H (137-145) mmol/L Potassium 3.4 L (3.5-5.1) mmol/L Chloride 118 H (98-107) mmol/L BUN 28 H (9-20) mg/dL Glucose 134 H (74-99) mg/dL POC Glucose (mg/dL) (70-110) mg/dL Calcium (8.4-10.2) mg/dL Magnesium 2.5 H (1.6-2.3) mg/dL Creatine Kinase (55-170) U/L Total Protein (6.3-8.2) g/dL Albumin (3.5-5.0) g/dL Urine Protein (Negative) Urine Ketones (Negative) U Benzodiazepines Scrn (NotDetected) Thrombosis Risk Factor Assmnt - Choose All That Apply Any of the Below Risk Factors Present?: Yes Each Factor Represents 1 point: Medical pt on bed rest Other Risk Factors: Yes Each Risk Factor Represents 2 Points: Patient confined to bed Other congenital or acquired thrombophilia - If yes, enter type in comment: No Thrombosis Risk Factor Assessment Total Risk Factor Score: 3 Thrombosis Risk Factor Assessment Level: Moderate Risk
--- NOTE | 2022-11-01 15:23 | P.CN ---
Psychiatric Consult - . Consult date: 11/01/22 Consult:: 11/01/22 14:48 IDENTIFYING DATA: This patient is a 32-year-old male, coming to the hospital as a transfer from [place] REASON FOR REFERRAL: Psychiatry was consulted for altered mental status, opiate/benzodiazepine abuse, psychiatric history HISTORY OF PRESENT ILLNESS: The patient presented to the hospital initially on 10/31 as a transfer from [place] for altered mental status. Patient was found to be hypernatremic and also altered and was admitted to the ICU due to suspected withdrawal/intoxication for benzodiazepines and opiates. Patient's urine drug screen was positive for benzodiazepines. Patient received several when necessary's of Ativan since being admitted. His computed tomography scan of his brain was negative for any acute changes. Blood alcohol level was negative. Neurology has been consulted and is on board. Patient was seen today at the bedside laying in bed and playing with his fingers. He appeared to be fairly distracted, poor concentration. He appeared to be over familiar with the publications writer today. He believed that he was at [place] and needed to be reoriented. He knew today's correct date. He also knew the correct day of the week. He was responding to internal stimuli. He claims that "we are here together" and made several other bizarre remarks towards publications writer. He claims that "I'm here so we can have a better life". He claims that his sleep was poor. He denied any depression or anxiety and states that "I'm good". He denies any auditory or visual hallucinations. Denies any suicidal or homicidal ideations intent or plan. When asked further questions patient stopped the conversation immediately and told publications writer "I'm done with this conversation he needs to go right now" and stopped answering any questions. Patient apparently does have a history of benzodiazepine abuse and possibly opiate abuse. Patient was fairly guarded and evasive with the publications writer and did not answer any other questions related to his social history. PAST PSYCHIATRIC HISTORY: Patient has a a history of possible lewis benzodiazepine abuse and opiate abuse, unknown psychiatric history. According to EMR patient has not been hospitalized at this hospital previously. Past Medical History: No Reported History History of Any Multi-Drug Resistant Organisms: None Reported Past Surgical History: No Surgical Hx Reported Past Anesthesia/Blood Transfusion Reactions: No Reported Reaction Past Psychological History: No Psychological Hx Reported Smoking Status: Former smoker Past Alcohol Use History: Unable to Obtain Past Drug Use History: Opiates Additional Drug Use History / Comment(s): Pt has history of fentanyl and benzo abuse ALLERGIES: as per EMR. CHEMICAL DEPENDENCY HISTORY: Unable to assess FAMILY PSYCHIATRIC/SUBSTANCE USE HISTORY: Unable to assess SOCIAL HISTORY: Unable to assess MENTAL STATUS EXAM: General Appearance: Patient appears to be stated age is alert, distracted and bizarre. Patient appears to have fair hygiene and grooming wearing hospital gown with poor eye contact. Behavior: is superficial, bizarre and distracted Speech: Patient's speech is fluent and nonpressured. [place], demanding Mood/Affect: Patient reports their mood is "ok", affect is incongruent Suicidality/Homicidality: Patient denies having any suicidal or homicidal ideation intent or plan. Perceptions: Patient denies any visual hallucinations and denies any auditory castillo llucinations Though content/process: [place], poverty of content. Demanding. Bizarre and illogical. Memory and concentration: AOX2, does not know his current location, believes that he is at [place]. Poor concentration span. Judgment and insight: poor IMPRESSIONS: Delirium likely due to withdrawal from benzodiazepines and possible opiates Likely benzodiazepine dependence PLAN: -At this time patient DOES NOT meet criteria for inpatient psychiatric admission. -Patient DOES NOT have decision making capacity at this time and is unable to reason through and communicate/appreciate the risks, benefits and alternatives to treatment. -Delirium precautions recommended with patient including - avoiding use of narcotics and [employer] sedatives, limit anticholinergic medications when possible, frequent re-orientation, minimize use of restraints, open window shades during the day and close them at night -Would recommend the following medication changes/additions: Decrease Seroquel to 25 mg tid for psychosis/delirium, start Valium 5 mg by mouth 4 times a day scheduled with plan to taper down to prevent withdrawal and delirium. Patient is currently on IV Precedex with plan to taper down. haldol and ativan prn for agitation. -Continue 1:1 sitter for safety -continue to monitor vital signs -Cannot leave AMA at this time. Patient will need a petition and certification if attempting to leave AMA. -Communicated plan to patient's nurse -Will continue to follow along tomorrow -Please contact with any questions. 11/01/22 15:16
[2022-11-01 16:41] LABS: T4, Free (Free Thyroxine) 1.25 ng/dL (0.78-2.19)
[2022-11-01] MEDS: diazePAM 5 MG TAB PO SCH ×3 (17:08→20:43)
[2022-11-01] MEDS: QUEtiapine 25 MG TAB PO SCH (20:43)
[2022-11-02 04:07] LABS: Basophils % (A) 0 %; Eosinophils # (A) 0.1 k/uL (0-0.7); Eosinophils % (A) 1 %; HCT 38.5 % (39.0-53.0); HGB 12.5 gm/dL (13.0-17.5); Lymphocytes # (A) 1.2 k/uL (1.0-4.8); Lymphocytes % (A) 16 %; MCH 26.9 pg (25.0-35.0); MCHC 32.5 g/dL (31.0-37.0); MCV 82.9 fL (80.0-100.0); Mean Platelet Volume 7.5; Monocytes # (A) 0.4 k/uL (0-1.0); Monocytes % (A) 6 %; Neutrophils # (A) 5.9 k/uL (1.3-7.7); Neutrophils % (A) 76 %; Platelet Count 193 k/uL (150-450); RBC 4.65 m/uL (4.30-5.90); RDW 13.3 % (11.5-15.5); WBC 7.7 k/uL (3.8-10.6)
[2022-11-02 04:17] LABS: African American GFR (CKD) >90 (>60 ml/min/1.73 sqM); Anion Gap 13 mmol/L; Blood Urea Nitrogen 16 mg/dL (9-20); Calcium 8.5 mg/dL (8.4-10.2); Carbon Dioxide 23 mmol/L (22-30); Chloride 107 mmol/L (98-107); Glucose 95 mg/dL (74-99); Non-African American GFR(CKD) >90 (>60 ml/min/1.73 sqM); Sodium 143 mmol/L (137-145)
[2022-11-02] MEDS ORDERED: Potassium Replacement Protocol 1 EACH MISC MISCELLANE PRN (04:54)
[2022-11-02] MEDS ORDERED: POTASSIUM CHLORIDE ER 20 MEQ TAB.ER PO SCH (05:00)
[2022-11-02] MEDS: SODIUM CHLORIDE 0.45% 1,000 ML IV SCH ×3 (05:32→15:41)
[2022-11-02] MEDS: POTASSIUM CHLORIDE 10 MEQ in WATER FOR INJECTION 1 100ML.BAG IVPB SCH ×6 (05:35→13:26)
[2022-11-02] MEDS: HEPARIN SODIUM,PORCINE/PF 5,000 UNIT/0.5 ML SYRINGE SQ SCH ×2 (08:29→21:19)
[2022-11-02] MEDS: diazePAM 5 MG TAB PO SCH ×3 (08:30→21:19)
[2022-11-02] MEDS: THIAMINE 100 MG in SODIUM CHLORIDE 0.9% 50 ML IVPB SCH (08:30)
[2022-11-02] MEDS: NICOTINE 21MG/24HR PATCH TRANSDERM SCH (08:30)
[2022-11-02] MEDS: QUEtiapine 25 MG TAB PO SCH (08:30)
[2022-11-02] MEDS: PANTOPRAZOLE 40 MG/10 ML VIAL IV SCH (08:31)
--- NOTE | 2022-11-02 10:30 | P.PN ---
Subjective Progress Note Date: 11/02/22 Principal diagnosis: Drug withdrawal. I'm seeing this patient in new consultation today 11/01/2022 in the intensive care unit for suspected opiate and benzodiazepine withdrawal. Patient is a 32-year-old white male, with past medical history significant for polysubstance abuse, who was being seen at [facility]. Patient was reportedly there for over 1 week, when he started to develop worsening altered mental status and agitation, and was transferred to [facility]. While in the emergency department, the patient became more restless and agitated. He was treated with multiple doses of IV Ativan and IM Geodon without improvement. The patient was started on IV Precedex drip, and admitted to the intensive care unit. Patient is currently lying in bed, on room air, and is fairly comfortable. He is having some auditory and visual hallucinations. Precedex is infusing at 0.7 mcg/kg per hour. He is disoriented and a poor historian. There is a director of safety and security at bedside. Brain CT without contrast on arrival was negative for any acute abnormalities. Chest x-ray showed no acute cardiopulmonary abnormalities. CBC on arrival showed a WBC count 11, hemoglobin 16, hematocrit 49, platelets 362. BMP shows a sodium of 152, potassium 3.9, chloride 108, s andrew CO2 25, BUN 38, creatinine 1.15, glucose 137. He clinically appears dehydrated, and has normal saline infusing at 130 ML's per hour. He also was given 2 L normal saline bolus in the emergency room. Estimated free water deficit was 3.5 L. Urine tox screen was only positive for benzos, which were given in the emergency room. Vital signs are stable at this time. Progress note dated 11/02/2022. The patient is seen today in room 257. He is on room air. The patient's getting half-normal saline at 100 mL an hour. The patient is not on any drips. From my perspective, the patient could be transferred to the general medical floor. The patient had an uneventful night last night. White count is 7.7, hemoglobin 12.5, hematocrit 38.5, with a platelet count of 193,000. Sodium 143, potassium 3, chlorides 107, CO2 23, anion gap is 13, BUN 16, and creatinine 0.57. Objective - Vital Signs Vital signs: Vital Signs Temp 97.9 F 11/02/22 08:00 Pulse 51 L 11/02/22 08:00 Resp 20 11/02/22 08:00 BP 134/85 11/02/22 08:00 Pulse Ox 97 11/02/22 08:00 FiO2 Intake & Output 11/01/22 11/02/22 11/02/22 18:59 06:59 18:59 Intake Total 9900.172 9211 320 Output Total 676 1101 400 Balance 713.619 2734 -80 Weight 106.3 kg Intake: IV 1260 1300 100 Potassium Chloride 10 meq 100 100 In Water For Injection 1 100ml.bag @ 100 mls/hr IVPB Q1HR JOHAN Rx#: [id number] Sodium Chloride 0.45% 1, 1000 1200 000 ml @ 100 mls/hr IV . Q10H JOHAN Rx#:[id number] Sodium Chloride 0.9% 1, 260 000 ml @ 130 mls/hr IV . Q7H42M JOHAN Rx#:[id number] Intake, IV Titration 89.661 100 Amount Dexmedetomidine/0.9% NaCl 89.661 (Pmx) 400 mcg In Empty Bag 1 bag @ 0.2 MCG/KG/HR 4.536 mls/hr IV .Q22H3M JOHAN Rx#:[id number] Thiamine 100 mg In Sodium 100 Chloride 0.9% 50 ml @ 100 mls/hr IVPB DAILY JOHAN Rx#:[id number] Oral 1000 120 Output: Urine 675 1100 400 Stool 1 1 Other: Voiding Method Bedside Commode Bedside Commode Toilet Urinal Urinal # Voids 1 0 # Bowel Movements 1 1 - Exam No acute distress, oriented 3. Currently on room air. Saturation is 97%. HEENT examination is grossly unremarkable. Mucous membranes are moist. No oral lesions. Neck supple. Full range of motion. No adenopathy thyromegaly or neck vein distention. Cardiovascular examination reveals regular rhythm rate. S1-S2 normal. No S3 or S4. No discernible murmur noted. Heart rate 51 bpm. Lungs reveal clear breath sounds. Breath sounds are equal bilaterally. No adventitious lung sounds including wheezes rhonchi or crackles. Abdomen soft bowel sounds are heard. No masses or tenderness. Extremities are intact. No cyanosis clubbing or edema. Skin is without rash or lesion. Neurologic examination is brief but nonfocal. - Labs CBC & Chem 7: 11/02/22 03:37 11/02/22 03:37 Labs: Abnormal Lab Results - Last 24 Hours (Table) 10/31/22 11/02/22 11/02/22 Range/Units 14:27 03:37 03:37 Hgb 12.5 L (13.0-17.5) gm/dL Hct 38.5 L (39.0-53.0) % Potassium 3.0 L (3.5-5.1) mmol/L Creatinine 0.57 L (0.66-1.25) mg/dL Vitamin B12 1220.0 H (200.0-944.0) pg/mL TSH 0.046 L (0.465-4.680) mIU/L Assessment and Plan Assessment: Altered mental status, related to suspected acute opiate and benzodiazepine withdrawals, initially requiring dexmedetomidine infusion. Hypernatremia. Dehydration. Ex-smoker. Plan: Plan dated 11/02/2022. From my perspective, the patient can be discharged out of the intensive care unit. The patient can go to the general medical floor. I appreciate input from psychiatry. The patient's on numerous medications including Seroquel, Haldol, Ativan, and Librium. No additional recommendations are made. Moving forward, we will see the patient only as needed. Time with Patient: Less than 30
--- NOTE | 2022-11-02 13:00 | P.PN ---
Subjective Progress Note Date: 11/02/22 Patient is a 32-year-old gentleman with past medical history significant for polysubstance abuse was sent to the ER from [place] where he was being treated for polysubstance abuse. Patient was reportedly there for over 1 week, when he started to develop worsening altered mental status and agitation, and was transferred to [facility]. Initial lab work done in the ER showed WBC 11.1, hemoglobin 6.3, sodium 152, potassium 3.9, chloride 108, BUN 38, creatinine 1.15 Urine tox screen is positive for benzo. Serum alcohol was less than 10. Otherwise the rest of the urine drug screen is nondetected. Ammonia level is less than 9. CT of the head is reported as no acute intracranial hemorrhage, mass effect or midline shift is seen. While in the emergency department, the patient became more restless and agitated. He was treated with multiple doses of IV Ativan and IM Geodon without improvement. The patient was started on IV Precedex drip, and admitted to the intensive care unit 11/02. Patient seen and examined. Patient is still shaky, more responsive compared to yesterday. Denies any auditory or visual hallucinations. Potassium this morning is 3, replacement ordered REVIEW OF SYSTEMS: CONSTITUTIONAL: No fever, no malaise,. CARDIOVASCULAR: No chest pain, no palpitations, no syncope. PULMONARY: No shortness of breath, no cough, GASTROINTESTINAL: No diarrhea, no nausea, no vomiting, no abdominal pain. NEUROLOGICAL: No headaches, no weakness, PHYSICAL EXAMINATION: GENERAL: The patient is alert , not in any acute distress. Well developed, well nourished. Still shaky HEENT: Pupils are round and equally reacting to light. EOMI. No scleral icterus. No conjunctival pallor. Normocephalic, atraumatic. No pharyngeal erythema. No thyromegaly. CARDIOVASCULAR: S1 and S2 present. No murmurs, rubs, or gallops. PULMONARY: Chest is clear to auscultation, no wheezing or crackles. ABDOMEN: Soft, nontender, nondistended, normoactive bowel sounds. No palpable organomegaly. MUSCULOSKELETAL: No joint swelling or deformity. EXTREMITIES: No cyanosis, clubbing, or pedal edema. NEUROLOGICAL: Gross neurological examination did not reveal any focal deficits. SKIN: No rashes. Assessment and plan Monitor vital signs Monitor CBC Monitor CMP Delirium precautions avoiding use of narcotics and EX CHEF sedatives, limit anticholinergic medications when possible, frequent re-orientation, minimize use of restraints, open window shades during the day and close them at night Continue IV Precedex Continue haldol and ativan prn for agitation. Psych evaluated the patient recommended the following medication changes/additions: Decrease Seroquel to 25 mg tid for psychosis/delirium, start Valium 5 mg by mouth 4 times a day scheduled with plan to taper down to prevent withdrawal and delirium. Critical care following DVT prophylaxis: Objective - Vital Signs Vital signs: Vital Signs Temp 97.9 F 11/02/22 08:00 Pulse 51 L 11/02/22 08:00 Resp 20 11/02/22 08:00 BP 134/85 11/02/22 08:00 Pulse Ox 97 11/02/22 08:00 FiO2 Intake & Output 11/01/22 11/02/22 11/02/22 18:59 06:59 18:59 Intake Total 9596.205 2220 810 Output Total 676 1101 400 Balance 131.938 3703 410 Weight 106.3 kg Intake: IV 1260 1300 400 Potassium Chloride 10 meq 100 400 In Water For Injection 1 100ml.bag @ 100 mls/hr IVPB Q1HR JOHAN Rx#: [id number] Sodium Chloride 0.45% 1, 1000 1200 000 ml @ 100 mls/hr IV . Q10H JOHAN Rx#:[id number] Sodium Chloride 0.9% 1, 260 000 ml @ 130 mls/hr IV . Q7H42M JOHAN Rx#:[id number] Intake, IV Titration 89.661 50 Amount Dexmedetomidine/0.9% NaCl 89.661 (Pmx) 400 mcg In Empty Bag 1 bag @ 0.2 MCG/KG/HR 4.536 mls/hr IV .Q22H3M JOHAN Rx#:[id number] Thiamine 100 mg In Sodium 50 Chloride 0.9% 50 ml @ 100 mls/hr IVPB DAILY JOHAN Rx#:[id number] Oral 1000 360 Output: Urine 675 1100 400 Stool 1 1 Other: Voiding Method Bedside Commode Bedside Commode Toilet Urinal Urinal # Voids 1 0 1 # Bowel Movements 1 1 - Labs CBC & Chem 7: 11/02/22 03:37 11/02/22 03:37 Labs: Abnormal Lab Results - Last 24 Hours (Table) 10/31/22 11/02/22 11/02/22 Range/Units 14:27 03:37 03:37 Hgb 12.5 L (13.0-17.5) gm/dL Hct 38.5 L (39.0-53.0) % Potassium 3.0 L (3.5-5.1) mmol/L Creatinine 0.57 L (0.66-1.25) mg/dL Vitamin B12 1220.0 H (200.0-944.0) pg/mL TSH 0.046 L (0.465-4.680) mIU/L
--- NOTE | 2022-11-02 13:37 | P.PN ---
Progress Note - Text Progress Note Date: 11/02/22 Interval History: Patient was seen today for psychiatric follow-up regarding patient's delirium and benzodiazepine and opiate dependence/withdrawal. Patient's vital signs appear to be more stable today. Patient was more cooperative today during the evaluation and appeared to be less confused. He states that he slept fairly last night. He spoke more about his substance abuse history and states that he mainly has been using a significant amount of Xanax on the street. He states that he was using about 10 mg total per day. He also claims that his been injecting heroin about half a gram per day. [facility] to [facility] so. He believes that he will need to start the program over again. We spoke about other options including methadone and Suboxone which patient was against. He states that he would like to go to his primary care doctor get the Vivitrol injection. He states that his appetite is improving at this time. He knew today's date, his current location and his full name. He denies any anxiety or depression at this time. At this time patient denies any suicidal or homical ideations, intent or plan. Patient denies any auditory, visual hallucinations and denies any paranoia or delusions. Patient denies any side effects from the medications and has been compliant with meds. Mental Status Exam: General Appearance: Patient appears to be stated age is alert, not bizarre and directable. Patient appears to have fair hygiene and grooming wearing hospital gown with proved eye contact. Behavior: Patient is more cooperative today. Directable. Speech: Patient's speech is fluent and nonpressured. Mood/Affect: Patient reports their mood is "alright", affect is congruent Suicidality/Homicidality: Patient denies having any suicidal or homicidal ideation intent or plan. Perceptions: Patient denies any visual hallucinations and denies any auditory hallucinations Though content/process: [place], poverty of content. Focused on discharge. Memory and concentration: AOX3, imProving concentration span. Judgment and insight: Chronically poor, improving moderately IMPRESSIONS: Delirium likely due to withdrawal from benzodiazepines and possible opiates Likely benzodiazepine dependence PLAN: -At this time patient DOES NOT meet criteria for inpatient psychiatric admission. -Would recommend the following medication changes/additions: Decrease Seroquel to 25 mg qhs for psychosis/delirium, decrease and taper Valium 5 mg by mouth 3 times a day scheduled with plan to taper down to prevent withdrawal and delirium over the next two days. haldol and ativan prn for agitation. -spoke with patient of the advantages of going back to and exploring methadone or suboxone routes however patient claims that he does not want these and would rather go to his pcp to get the vivitrol injection. -continue to monitor vital signs -at this time psychiatry will sign off. left a message with agricultural engineering technician about plan as show card writer was not able to locate patients current RN -Please contact with any questions.
--- NOTE | 2022-11-02 16:37 | P.PN ---
Subjective Progress Note Date: 11/02/22 She was seen at bedside in the cord at the nurse she's doing better today compared to what was reported yesterday. Patient states that he is doing better as well and he denies of any headache, focal weakness or numbness. Objective - Vital Signs Vital signs: Vital Signs Temp 98 F 11/02/22 14:00 Pulse 70 11/02/22 14:00 Resp 18 11/02/22 14:00 BP 137/84 11/02/22 14:00 Pulse Ox 97 11/02/22 14:00 FiO2 Intake & Output 11/01/22 11/02/22 11/02/22 18:59 06:59 18:59 Intake Total 1050.868 3912 1400 Output Total 676 1101 400 Balance 510.196 6602 1000 Weight 106.3 kg Intake: IV 1260 1300 750 Potassium Chloride 10 meq 100 500 In Water For Injection 1 100ml.bag @ 100 mls/hr IVPB Q1HR JOHAN Rx#: [id number] Sodium Chloride 0.45% 1, 1000 1200 250 000 ml @ 100 mls/hr IV . Q10H JOHAN Rx#:[id number] Sodium Chloride 0.9% 1, 260 000 ml @ 130 mls/hr IV . Q7H42M JOHAN Rx#:[id number] Intake, IV Titration 89.661 50 Amount Dexmedetomidine/0.9% NaCl 89.661 (Pmx) 400 mcg In Empty Bag 1 bag @ 0.2 MCG/KG/HR 4.536 mls/hr IV .Q22H3M JOHAN Rx#:[id number] Thiamine 100 mg In Sodium 50 Chloride 0.9% 50 ml @ 100 mls/hr IVPB DAILY JOHAN Rx#:[id number] Oral 1000 600 Output: Urine 675 1100 400 Stool 1 1 Other: Voiding Method Bedside Commode Bedside Commode Toilet Urinal Urinal # Voids 1 0 1 # Bowel Movements 1 1 - Exam GENERAL: The patient is lying in bed and is not in acute distress. NEUROLOGICAL: Higher mental function: The patient is awake, alert, oriented to self and time. He stated he was in the hospital but did not know name. Minimally slow responding but doing better. Slight confusion. Patient is following simple commands. No aphasia and no neglect. Cranial nerves: The pupils are round, equal and reactive to light and accommodation. Visual cabrera are full to confrontation throughout. Extraocular movement is intact no nystagmus is noted. Facial sensation is normal to touch throughout. The facial strength is normal throughout. Hearing is normal bilaterally to hand rub. Tongue is midline and moved [id number] without any difficulty. No dysarthria is noted. Shoulder shrug is normal bilaterally. Motor: The strength is 5 over 5 throughout. Normal tone and bulk. Cerebellum: Normal finger to nose bilaterally. Sensation: Sensation is normal to touch throughout. - Labs CBC & Chem 7: 11/02/22 03:37 11/02/22 03:37 Labs: Abnormal Lab Results - Last 24 Hours (Table) 10/31/22 11/02/22 11/02/22 Range/Units 14:27 03:37 03:37 Hgb 12.5 L (13.0-17.5) gm/dL Hct 38.5 L (39.0-53.0) % Potassium 3.0 L (3.5-5.1) mmol/L Creatinine 0.57 L (0.66-1.25) mg/dL Vitamin B12 1220.0 H (200.0-944.0) pg/mL Assessment and Plan Assessment: Altered mental status seems due to multifactorial: Predominantly opiate and benzo dyes the pain withdrawal as well as metabolic encephalopathy. CT head is negative. No focal deficit on examination--mentation improving. Hypernatremia Dehydration Vapes Plan: vitamin B12: 1220, folate 18.60, TSH 0.046 and free T4 1.25. No need for EEG since mentation improving. Continue thiamine 100 mg daily. Patient is currently on the Seroquel 25 mg 1 tablet 3 times a day started by the ICU team On nicotine patch. The patient was counseled on tobacco cessation. Psychiatry is consulted. We'll defer the rest of the medical management to primary and ICU team If the patient continues to be doing well by tomorrow then from neurological perspective is clear for discharge. Time with Patient: Less than 30
[2022-11-02] MEDS ORDERED: QUEtiapine 25 MG TAB PO SCH (21:00)
[2022-11-03] MEDS: POTASSIUM BICARBONATE/CIT AC 20 MEQ TABLET.EFF NG-TUBE SCH ×2 (00:35→01:29)
[2022-11-03 04:39] LABS: Basophils % (A) 0 %; Eosinophils # (A) 0.1 k/uL (0-0.7); Eosinophils % (A) 1 %; HCT 38.8 % (39.0-53.0); HGB 12.7 gm/dL (13.0-17.5); Lymphocytes # (A) 1.3 k/uL (1.0-4.8); Lymphocytes % (A) 17 %; MCH 26.2 pg (25.0-35.0); MCHC 32.6 g/dL (31.0-37.0); MCV 80.3 fL (80.0-100.0); Mean Platelet Volume 7.5; Monocytes # (A) 0.3 k/uL (0-1.0); Monocytes % (A) 4 %; Neutrophils # (A) 5.8 k/uL (1.3-7.7); Neutrophils % (A) 77 %; Platelet Count 208 k/uL (150-450); RBC 4.83 m/uL (4.30-5.90); RDW 13.3 % (11.5-15.5); WBC 7.6 k/uL (3.8-10.6)
[2022-11-03 04:49] LABS: ALT 25 U/L (4-49); AST 29 U/L (17-59); African American GFR (CKD) >90 (>60 ml/min/1.73 sqM); Albumin 3.7 g/dL (3.5-5.0); Alkaline Phosphatase 58 U/L (38-126); Anion Gap 12 mmol/L; Blood Urea Nitrogen 12 mg/dL (9-20); Calcium 8.9 mg/dL (8.4-10.2); Carbon Dioxide 22 mmol/L (22-30); Chloride 107 mmol/L (98-107); Glucose 126 mg/dL (74-99); Non-African American GFR(CKD) >90 (>60 ml/min/1.73 sqM); Potassium 3.7 mmol/L (3.5-5.1); Sodium 141 mmol/L (137-145); Total Bilirubin 0.7 mg/dL (0.2-1.3); Total Protein 6.6 g/dL (6.3-8.2)
[2022-11-03] MEDS: diazePAM 5 MG TAB PO SCH ×2 (06:23→08:25)
[2022-11-03 07:43] VITALS: RESP 15
[2022-11-03] MEDS: NICOTINE 21MG/24HR PATCH TRANSDERM SCH (08:25)
[2022-11-03] MEDS: HEPARIN SODIUM,PORCINE/PF 5,000 UNIT/0.5 ML SYRINGE SQ SCH (08:26)
[2022-11-03] MEDS: PANTOPRAZOLE 40 MG/10 ML VIAL IV SCH (08:26)
[2022-11-03] MEDS ORDERED: diazePAM 2 MG TAB PO SCH (10:01)
[2022-11-03] MEDS: THIAMINE 100 MG in SODIUM CHLORIDE 0.9% 50 ML IVPB SCH (10:10)
--- NOTE | 2022-11-03 10:50 | P.PN ---
Subjective Progress Note Date: 11/03/22 The patient seen at bedside and he feels is doing much better the past 2 days compared to initial presentation. The patient's nurse agrees that he is doing better. Patient denies of any headache, any focal weakness. Objective - Vital Signs Vital signs: Vital Signs Temp 98.1 F 11/03/22 07:08 Pulse 64 11/03/22 07:08 Resp 15 11/03/22 07:08 BP 112/73 11/03/22 07:08 Pulse Ox 96 11/03/22 07:08 FiO2 Intake & Output 11/02/22 11/03/22 11/03/22 18:59 06:59 18:59 Intake Total 1400 730 Output Total 400 Balance 1000 730 Intake: IV 750 Potassium Chloride 10 meq 500 In Water For Injection 1 100ml.bag @ 100 mls/hr IVPB Q1HR JOHAN Rx#: [id number] Sodium Chloride 0.45% 1, 250 000 ml @ 100 mls/hr IV . Q10H JOHAN Rx#:[id number] Intake, IV Titration 50 Amount Thiamine 100 mg In Sodium 50 Chloride 0.9% 50 ml @ 100 mls/hr IVPB DAILY JOHAN Rx#:[id number] Oral 600 730 Output: Urine 400 Other: Voiding Method Toilet Toilet Urinal Urinal # Voids 1 1 # Bowel Movements 1 - Exam GENERAL: The patient is lying in bed and is not in acute distress. NEUROLOGICAL: Higher mental function: The patient is awake, alert, oriented to self, place and time. Patient is following simple commands. No aphasia and no neglect. Cranial nerves: The pupils are round, equal and reactive to light and accommodation. Visual cabrera are full to confrontation throughout. Extraocular movement is intact no nystagmus is noted. Facial sensation is normal to touch throughout. The facial strength is normal throughout. Hearing is normal bilaterally to hand rub. Tongue is midline and moved [id number] without any difficulty. No dysarthria is noted. Shoulder shrug is normal bilaterally. Motor: The strength is 5 over 5 throughout. Normal tone and bulk. Cerebellum: Normal finger to nose bilaterally. Sensation: Sensation is normal to touch throughout. - Labs CBC & Chem 7: 11/03/22 03:54 11/03/22 03:54 Labs: Abnormal Lab Results - Last 24 Hours (Table) 11/03/22 11/03/22 Range/Units 03:54 03:54 Hgb 12.7 L (13.0-17.5) gm/dL Hct 38.8 L (39.0-53.0) % Creatinine 0.61 L (0.66-1.25) mg/dL Glucose 126 H (74-99) mg/dL Assessment and Plan Assessment: Altered mental status seems due to multifactorial: Predominantly opiate and benzo withdrawal. Some component of metabolic encephalopathy. CT head is negative. No focal deficit on examination--mentation improved Hypernatremia--resolved Dehydration Vapes Plan: vitamin B12: 1220, folate 18.60, TSH 0.046 and free T4 1.25. No need for EEG since mentation improved Continue thiamine 100 mg daily. Patient is currently on the Seroquel 25 mg 1 tablet 3 times a day. On nicotine patch. The patient was counseled on tobacco cessation. Psychiatry is consulted. We'll defer the rest of the medical management to primary team The plan is discussed with patient and his nurse. From neurological perspective is clear for discharge. Time with Patient: Less than 30
[2022-11-03 11:34] VITALS: BP 138/82; PULSE 69; TEMP 98.2
== END 2022-11-03 14:43 | DRG 773 ==
LOC: EC 13:58 → 3SCARD 17:30 → 2SICU 19:03 → 5NMEDONC 11-03 06:06
PROVIDERS: ADMIT Internal Medicine; ATTEND Internal Medicine
DX: F13.239 Sedative, hypnotic or anxiolytic dependence with withdrawal, unspecified (principal); G93.41 Metabolic encephalopathy; F11.23 Opioid dependence with withdrawal; E87.0 Hyperosmolality and hypernatremia; F19.10 Other psychoactive substance abuse, uncomplicated; Z28.310 Unvaccinated for COVID-19; E86.0 Dehydration; Z79.899 Other long term (current) drug therapy; Z71.6 Tobacco abuse counseling; Z71.51 Drug abuse counseling and surveillance of drug abuser; Z87.891 Personal history of nicotine dependence
CPT/HCPCS: 36415; 70450; 71045; 80048; 80053; 80306; 80320; 81003; 82140; 82550; 82607; 82746; 83735; 84132; 84439; 84443; 84484; 85025; 85610; 85730; 93005; 94640; 96361; 96372; 96374; 96376; 99285